=== PATIENT | female | born 1970 | race African-American/Black ===

== ENCOUNTER → 2017-01-07 | Emergency (ER) | payer BC ==
[~2017-01-07] MED LIST: KETOROLAC TROMETHAMINE 60 MG/2 ML VIAL IM ONE; KETOROLAC TROMETHAMINE 60 MG/2 ML VIAL ONE; METHOCARBAMOL 500 MG TABLET ONE; METHOCARBAMOL 500 MG TABLET PO ONE
[2017-01-07 23:18] VITALS: TEMP 98.2; BMI 41.1
--- NOTE | 2017-01-07 23:56 | PDOC ---
History of Present Illness - General History Source: Patient Exam Limitations: No Limitations - History of Present Illness Initial Comments: 01/08/17 01:23 The patient is a 46 year old female with a significant past medical history of diabetes, asthma, COPD, herniated disc in her back, herniated disc in her neck, and gallstones who presents to the ED with lower back pain since yesterday. Patient reports bilateral lower back pain worsened on the left side. She states her back pain radiates to her lower quadrant and is worsened in her lower left quadrant. She reports taking ibuprofen with slight relief of present symptoms. Patient states she had similar symptoms in the past and was diagnosed with kidney stones. Denies fevers or chills. Denies dysuria or changes in urinary output. Denies nausea, vomiting, or diarrhea. Denies any other symptoms. Surgical hx: Gallstones removed, tubal ligation Allergies: Penicillin <Jeanne Granado - Last Filed: 01/08/17 01:23> <Karla Stone - Last Filed: 01/08/17 05:10> - General Chief Complaint: Pain Stated Complaint: ABDOMINAL/BACK PAIN Time Seen by Provider: 01/07/17 23:55 Past History <Jeanne Granado - Last Filed: 01/08/17 01:23> - Past Medical History Anemia: Yes (IRON SUPP SOMETIMES) Asthma: Yes (NO MEDS CHILDHOOD) Cancer: No Cardiac Disorders: No CVA: No COPD: No CHF: No Dementia: No Diabetes: Yes (NIDDM) GI Disorders: No Disorders: No HTN: No Hypercholesterolemia: No Liver Disease: No Seizures: No Thyroid Disease: No - Surgical History Abdominal Surgery: No Appendectomy: Yes Cardiac Surgery: No Cholecystectomy: Yes (1999) Lung Surgery: No Neurologic Surgery: No Orthopedic Surgery: No - Immunization History Immunization Up to Date: Yes - Psycho/Social/Smoking Cessation Hx Suicidal Ideation: No Smoking History: Never smoked Have you smoked in the past 12 months: No If you are a former smoker, when did you quit?: 1996 Information on smoking cessation initiated: No Hx Alcohol Use: No Drug/Substance Use Hx: No Substance Use Type: None Hx Substance Use Treatment: No <Karla Stone - Last Filed: 01/08/17 05:10> - Past Medical History Allergies/Adverse Reactions: Allergies Allergy/AdvReac Type Severity Reaction Status Date / Time Penicillins AdvReac Severe Itching Verified 01/07/17 23:13 Home Medications: Ambulatory Orders Metformin HCl 500 mg PO DAILY 12/21/15 Ibuprofen [Motrin -] 600 mg PO Q8H PRN #0 tablet 12/22/15 Review of Systems - Review of Systems Able to Perform ROS?: Yes Comments:: 01/08/17 01:24 CONSTITUTIONAL: Absent: fever, chills, diaphoresis, generalized weakness, malaise, loss of appetite HEENT: Absent: rhinorrhea, nasal congestion, throat pain, throat swelling, difficulty swallowing, mouth swelling, ear pain, eye pain, visual Changes CARDIOVASCULAR: Absent: chest pain, syncope, palpitations, irregular heart rate, lightheadedness , peripheral edema RESPIRATORY: Absent: cough, shortness of breath, dyspnea with exertion, orthopnea, wheezing, stridor, hemoptysis GASTROINTESTINAL: + abdominal pain Absent: abdominal distension, nausea, vomiting, diarrhea, constipation, melena, hematochezia GENITOURINARY: Absent: dysuria, frequency, urgency, hesitancy, hematuria, flank pain, genital pain MUSCULOSKELETAL: + back pain Absent:joint swelling SKIN: Absent: rash, itching, pallor HEMATOLOGIC/IMMUNOLOGIC: Absent: easy bleeding, easy bruising, lymphadenopathy, frequent infections ENDOCRINE: Absent: unexplained weight gain, unexplained weight loss, heat intolerance, cold intolerance NEUROLOGIC: Absent: headache, focal weakness or paresthesias, dizziness, unsteady gait, seizure, mental status changes, bladder or bowel incontinence PSYCHIATRIC: Absent: anxiety, depression, suicidal or homicidal ideation, hallucinations. All Other Systems: Reviewed and Negative <Jeanne Granado - Last Filed: 01/08/17 01:23> *Physical Exam - Vital Signs Last Vital Signs Temp Pulse Resp BP Pulse Ox 98.2 F 65 20 101/66 98 01/07/17 23:13 01/07/17 23:13 01/07/17 23:13 01/07/17 23:13 01/07/17 23:13 - Physical Exam Comments: 01/08/17 01:24 GENERAL: Well developed, well nourished. Awake and alert. No acute distress. HEENT: Normocephalic, atraumatic. PERRLA, EOMI. No conjunctival pallor. Sclera are non- icteric. Moist mucous membranes. Oropharynx is clear. NECK: Supple. Full ROM. No JVD. Carotid pulses 2+ and symmetric, without bruits. No thyromegaly. NCo lymphadenopathy. CARDIOVASCULAR: Regular rate and rhythm. No murmurs, rubs, or gallops. Distal pulses are 2+ and symmetric. PULMONARY: No evidence of respiratory distress. Lungs clear to auscultation bilaterally. No wheezing, rales or rhonchi. ABDOMINAL: Soft. Non-tender. Non-distended. No rebound or guarding. No organomegaly. Normoactive bowel sounds. MUSCULOSKELETAL: + Left sided straight leg test, pain only to the back , no radiation to the legs. No flank pain with percussion Normal range of motion at all joints. No bony deformities. No CVA tenderness. EXTREMITIES: No cyanosis. No clubbing. No edema. No calf tenderness. SKIN: Warm and dry. Normal capillary refill. No rashes. No jaundice. NEUROLOGICAL: Alert, awake, appropriate. Cranial nerves 2-12 intact. No deficits to light touch and temperature in face, upper extremities and lower extremities. No motor deficits in the in face, upper extremities and lower extremities. Normoreflexic in the upper and lower extremities. Normal speech. Toes are down- going bilaterally. Gait is normal without ataxia. PSYCHIATRIC: Cooperative. Good eye contact. Appropriate mood and affect. <Jeanne Granado - Last Filed: 01/08/17 01:23> - Vital Signs Last Vital Signs Temp Pulse Resp BP Pulse Ox 98.2 F 65 20 101/66 98 01/07/17 23:13 01/07/17 23:13 01/07/17 23:13 01/07/17 23:13 01/07/17 23:13 <Karla Stone - Last Filed: 01/08/17 05:10> ED Treatment Course - ADDITIONAL ORDERS Additional order review: Laboratory Results 01/08/17 00:00 Urine Color Ltyellow Urine Appearance Clear Urine pH 6.0 Urine Protein Negative Urine Glucose (UA) Negative Urine Ketones Negative Urine Blood 1+ H Urine Nitrite Negative Urine Bilirubin Negative Urine Urobilinogen Negative Ur Leukocyte Esterase Trace Urine RBC 3 Urine WBC 6 Ur Epithelial Cells Rare Hyaline Casts 1 Urine Mucus Few Urine HCG, Qual Negative <Jeanne Granado - Last Filed: 01/08/17 01:23> - LABORATORY CBC & Chemistry Diagram: 01/08/17 01:33 01/08/17 01:33 <Karla Stone - Last Filed: 01/08/17 05:10> Medical Decision Making - Medical Decision Making 01/08/17 04:15 Pt comes with low back pain radiating to the left flank. She states that she has a hx of CT scan of the abd pelvis and that she had kidney stones in the past. Pt states that this is the same pain. She has no straight leg pain radiating down the buttock or to the back of her legs. Pt will be treated with analgesia and muscle relaxants for the low back pain, but I will scan her abd pelvis for stones. 01/08/17 05:10 Patient Name: Monique Sullivan THIS IS A PRELIMINARY REPORT FROM [facility] DATE OF SERVICE: 2017-01-08 03:37:37.0 IMAGES: 492 EXAM: CT abdomen and pelvis without contrast HISTORY:Left flank pain COMPARISON: None. FINDINGS: Serial axial sections through the abdomen and pelvis were obtained. No intravenous contrast was given. Coronal and sagittal reconstructions were formatted. Sections through the lung bases are unremarkable. The liver and spleen have a normal size and configuration. The gallbladder has been previously removed. The bile ducts are not dilated. The pancreas is unremarkable. The kidneys are without stone or hydronephrosis. No solid renal mass is identified. The bowel gas pattern is unremarkable. There is no abnormal bowel wall thickening or evidence of diverticulitis. The appendix is normal. The pelvic structures are unremarkable. The uterus and ovaries are not enlarged. A uterine calcification suggests a small fibroid. There is no pathologic adenopathy. The aorta has normal caliber. IMPRESSION: Fibroid uterus. No bowel obstruction or focal inflammation. No ureteric stone or hydronephrosis. The appendix is normal. No acute findings are seen. THIS DOCUMENT HAS BEEN ELECTRONICALLY SIGNED <Karla Stone - Last Filed: 01/08/17 05:10> *DC/Admit/Observation/Transfer - Attestations Scribe Attestion: 01/08/17 01:24 Documentation prepared by Jeanne Granado, acting as medical director occupational health for Karla Stone MD <Jeanne Granado - Last Filed: 01/08/17 01:23> - Discharge Dispostion Admit: No <Karla Stone - Last Filed: 01/08/17 05:10> Diagnosis at time of Disposition: Renal colic - Discharge Dispostion Disposition: HOME Condition at time of disposition: Stable - Referrals Referrals: Alisha James [Primary Care Provider] - - Patient Instructions Printed Discharge Instructions: Kidney Stones -- Adult - Post Discharge Activity Work/School Note: Back to Work
[2017-01-08 00:27] LABS: URINE APPEARANCE CLEAR; URINE BILIRUBIN NEGATIVE (NEGATIVE); URINE BLOOD 1+ (NEGATIVE); URINE COLOR LTYELLOW; URINE GLUCOSE (UA) NEGATIVE (NEGATIVE); URINE KETONE NEGATIVE (NEGATIVE); URINE LEUK ESTERASE TRACE (NEGATIVE); URINE NITRITE NEGATIVE (NEGATIVE); URINE PROTEIN NEGATIVE (NEGATIVE); URINE UROBILINOGEN NEGATIVE mg/dL (0.2-1.0)
[2017-01-08 00:44] LABS: URINE HYALINE CAST 1 /lpf; URINE MUCUS FEW; URINE RBC 3 /hpf (0-3); URINE WBC 6 /hpf (3-5)
[2017-01-08 01:40] LABS: BASOPHIL 0.2 % (0-2.0); EOSINOPHIL 3.5 % (0-4.5); MCH 27.1 pg (25.7-33.7); MCHC 32.1 g/dl (32.0-36.0); MEAN CELL VOLUME 84.2 fl (80-96); MEAN PLT VOLUME 7.6 fl (7.5-11.1); NEUTROPHILS 50.1 % (42.8-82.8); PLATELET COUNT 338 K/MM3 (134-434); WHITE BLOOD COUNT 9.1 K/mm3 (4.0-10.0)
[2017-01-08 02:16] LABS: ALBUMIN 3.3 g/dl (3.4-5.0); ANION GAP 8 (8-16); BILIRUBIN,TOTAL 0.6 mg/dL (0.2-1.0); CALCIUM 8.6 mg/dL (8.5-10.1); CO2 30 mmol/L (21-32); CREATININE 0.7 mg/dL (0.55-1.02); GLUCOSE,RANDOM 103 mg/dL (74-106); SGOT/AST 15 U/L (15-37); SGPT/ALT 19 U/L (12-78); TOT PROT 6.6 g/dl (6.4-8.2)
[2017-01-08 02:17] LABS: ALK PHOS 100 U/L (45-117)
[2017-01-08 04:20] VITALS: BP 124/73; PULSE 59
== END | disposition home or self-care (01) ==
LOC: JER 22:59
PROC: 3E0233Z Introduction of Anti-inflammatory into Muscle, Percutaneous Approach (ICD-10-PCS; principal; 2017-01-07)
DX: N23 Unspecified renal colic (principal); Z87.442 Personal history of urinary calculi
CPT/HCPCS: 36415; 74176; 80053; 81003; 81015; 84703; 85025; 99282-25

== ENCOUNTER 2017-01-15 10:05 | Emergency (ER) | payer SELFPAY ==
[2017-01-15 10:16] VITALS: BP 139/84; PULSE 61; TEMP 98.4; BMI 41.1
[2017-01-15] MEDS ORDERED: ALBUTEROL SO4 2.5/IPRATROPIUM 0.5 INH SOL 3 ML VIAL.NEB. NEB ONE ×2 (10:27→10:29)
--- NOTE | 2017-01-15 10:30 | PDOC ---
History of Present Illness - General Chief Complaint: Asthma Stated Complaint: ASTHMA Time Seen by Provider: 01/15/17 10:27 History Source: Patient, Parent(s) Exam Limitations: No Limitations - History of Present Illness Initial Comments: 01/15/17 10:29 Patient is a 46-year-old female, history of anemia, asthma, non-insulin- dependent diabetes. Patient states the last 24 hours has been having intermittent coughing, spasm, asthma exacerbation. Reports she had similar episode one year ago and has not had one since so she did not have her rescue inhaler today and did not have any new prescription for it. She denies any fever, no sore throat. Denies any other complaint. Past Medical History: Denies. Allergies: No known allergies Medications: Metformin, not taken Pulmicort for one year Family History: Non-contributory Social History: Denies smoking, alcohol use, or IVDU Review of Systems GENERAL/CONSTITUTIONAL: No fever or chills. No weakness. No weight change. HEAD, EYES, EARS, NOSE AND THROAT: No change in vision. No ear pain or discharge. No sore throat. CARDIOVASCULAR: No chest pain or shortness of breath. RESPIRATORY: Cough and wheeze, no hemoptysis. GASTROINTESTINAL: No nausea, vomiting, diarrhea or constipation. No rectal bleeding. GENITOURINARY: No dysuria, frequency, or change in urination. MUSCULOSKELETAL: No joint or muscle swelling or pain. No neck or back pain. SKIN : No rash or easy bruising. NEUROLOGIC: No headache, vertigo, loss of consciousness, or loss of sensation. Physical Exam: GENERAL: The patient is awake, alert, and fully oriented, in no acute distress.] HEAD: [Normal with no signs of trauma.] EYES: [Pupils equal, round and reactive to light, extraocular movements intact, sclera anicteric, conjunctiva clear.] ENT: [Ears normal, nares patent, oropharynx clear without exudates. Moist mucous membranes. No uvula deviation] NECK: [Normal range of motion, supple without lymphadenopathy, JVD, or masses.] LUNGS: [Expiratory wheezes, no crackles, bronchospasm] HEART: [Regular rate and rhythm, normal S1 and S2 without murmur, rub or gallop. ] ABDOMEN: [Soft, nontender, normoactive bowel sounds. No guarding, no rebound. No masses. No bruising or abrasions] MUSCULOSKELETAL: [Normal range of motion, no edema. No clubbing or cyanosis. No cords, erythema, or tenderness. No CVA Tenderness with fist.] NEUROLOGICAL: [Cranial nerves II through XII grossly intact. Normal speech, normal gait.] SKIN: [Warm, Dry, normal turgor, no rashes or lesions noted.] Past History - Past Medical History Allergies/Adverse Reactions: Allergies Allergy/AdvReac Type Severity Reaction Status Date / Time Penicillins AdvReac Severe Itching Verified 01/15/17 10:14 Home Medications: Ambulatory Orders Metformin HCl 500 mg PO DAILY 12/21/15 Albuterol Sulfate Inhaler - [Ventolin HFA Inhaler -] 1 puff IH Q4H #1 inhaler Budesonide [Pulmicort Flexhaler] 90 mcg IH DAILY #1 aer.pow.ba 01/15/17 Prednisone [Deltasone -] 20 mg PO DAILY #5 tablet 01/15/17 Anemia: Yes (IRON SUPP SOMETIMES) Asthma: Yes Cancer: No Cardiac Disorders: No CVA: No COPD: No CHF: No Dementia: No Diabetes: Yes (NIDDM) GI Disorders: No Disorders: No HTN: No Hypercholesterolemia: No Liver Disease: No Seizures: No Thyroid Disease: No - Surgical History Abdominal Surgery: No Appendectomy: Yes Cardiac Surgery: No Cholecystectomy: Yes (1999) Lung Surgery: No Neurologic Surgery: No Orthopedic Surgery: No - Immunization History Immunization Up to Date: Yes - Psycho/Social/Smoking Cessation Hx Suicidal Ideation: No Smoking History: Former smoker Have you smoked in the past 12 months: No If you are a former smoker, when did you quit?: 1996 Information on smoking cessation initiated: No Hx Alcohol Use: No Drug/Substance Use Hx: No Substance Use Type: None Hx Substance Use Treatment: No *Physical Exam - Vital Signs Last Vital Signs Temp Pulse Resp BP Pulse Ox 98.4 F 61 19 139/84 97 01/15/17 10:14 01/15/17 10:14 01/15/17 10:14 01/15/17 10:14 01/15/17 10:14 Medical Decision Making - Medical Decision Making 01/15/17 10:30 A/P: Received patient with moist cough, spasm bronchospasm, Combivent treatment given. 01/15/17 10:49 Albuterol given. 01/15/17 11:45 Albuterol given, lungs are clear patient states she feels better. No bronchospasm is noted. Prednisone 60 mg by mouth times one given. O2 sats are 100% on room air, clear, will DC patient home on prednisone, albuterol. I discussed the physical exam findings, ancillary test results and final diagnoses with the patient. I answered all of the patient's questions. The patient was satisfied with the care received and felt comfortable with the discharge plan and treatment plan. The patient will call to arrange follow-up and will return to the Emergency Department with any new, persistent or worsening symptoms. *DC/Admit/Observation/Transfer Diagnosis at time of Disposition: Asthma Qualifiers: Asthma severity: mild intermittent Asthma complication type: with acute exacerbation Qualified Code(s): J45.21 - Mild intermittent asthma with (acute) exacerbation - Discharge Dispostion Disposition: HOME Condition at time of disposition: Good Admit: No - Referrals Referrals: Alisha James [Primary Care Provider] - - Patient Instructions Printed Discharge Instructions: Asthma -- Adult Additional Instructions: Recommend follow-up with your primary care doctor. Any increased shortness of breath, coughing, fever, or any other concerns return to the ER.
[2017-01-15] MEDS ORDERED: ALBUTEROL SO4 0.083% IH SOL 2.5 MG/3 ML VIAL.NEB. NEB ONE ×4 (10:50→11:17)
[2017-01-15] MEDS ORDERED: predniSONE 20 MG TABLET (UD) PO ONE (11:12)
[2017-01-15] MEDS ORDERED: predniSONE 20 MG TABLET (UD) ONE (11:17)
== END 2017-01-15 11:57 | disposition home or self-care (01) ==
LOC: JERFT 10:05
PROC: 3E0F7GC Introduction of Other Therapeutic Substance into Respiratory Tract, Via Natural or Artificial Opening (ICD-10-PCS; principal; 2017-01-15)
DX: J45.21 Mild intermittent asthma with (acute) exacerbation (principal); D64.9 Anemia, unspecified; E11.9 Type 2 diabetes mellitus without complications; Z79.84 Long term (current) use of oral hypoglycemic drugs
CPT/HCPCS: 99281-25

== ENCOUNTER 2017-08-29 19:42 | Emergency (ER) | payer SELFPAY ==
--- NOTE | 2017-08-29 20:02 | PDOC ---
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 nO labs sent- waits FT eval. 08/29/17 20:02 08/29/17 20:04
[2017-08-29 20:04] VITALS: BP 137/87; PULSE 82; TEMP 97.9; BMI 41.8
--- NOTE | 2017-08-29 22:21 | PDOC ---
History of Present Illness - General Chief Complaint: Head/Neck problem Stated Complaint: LEFT SIDE NUMBNESS Time Seen by Provider: 08/29/17 19:56 Past History - Past Medical History Allergies/Adverse Reactions: Allergies Allergy/AdvReac Type Severity Reaction Status Date / Time Penicillins AdvReac Severe Itching Verified 08/29/17 20:04 Home Medications: Ambulatory Orders Metformin HCl 500 mg PO DAILY 12/21/15 Albuterol Sulfate Inhaler - [Ventolin HFA Inhaler -] 1 puff IH Q4H #1 inhaler Budesonide [Pulmicort Flexhaler] 90 mcg IH DAILY #1 aer.pow.ba 01/15/17 predniSONE [Deltasone -] 20 mg PO DAILY #5 tablet 01/15/17 Anemia: Yes (IRON SUPP SOMETIMES) Asthma: Yes Cancer: No Cardiac Disorders: No CVA: No COPD: No CHF: No Dementia: No Diabetes: Yes (NIDDM) GI Disorders: No Disorders: No HTN: No Hypercholesterolemia: No Liver Disease: No Seizures: No Thyroid Disease: No - Surgical History Abdominal Surgery: No Appendectomy: Yes Cardiac Surgery: No Cholecystectomy: Yes (1999) Lung Surgery: No Neurologic Surgery: No Orthopedic Surgery: No - Immunization History Immunization Up to Date: Yes - Suicide/Smoking/Psychosocial Hx Smoking History: Never smoked Have you smoked in the past 12 months: No If you are a former smoker, when did you quit?: 1996 Information on smoking cessation initiated: No Hx Alcohol Use: No Drug/Substance Use Hx: No Substance Use Type: None Hx Substance Use Treatment: No *Physical Exam - Vital Signs Last Vital Signs Temp Pulse Resp BP Pulse Ox 97.9 F 82 18 137/87 99 08/29/17 19:58 08/29/17 19:58 08/29/17 19:58 08/29/17 19:58 08/29/17 19:58 *DC/Admit/Observation/Transfer - Referrals Referrals: Alisha James [Primary Care Provider] - - Patient Instructions - Post Discharge Activity
== END 2017-08-29 22:52 | disposition left against medical advice (07) ==
LOC: JERFT 19:42
DX: M54.2 Cervicalgia (principal)
CPT/HCPCS: 99281-25

== ENCOUNTER 2017-08-30 17:20 | Emergency (ER) | payer BC ==
--- NOTE | 2017-08-30 17:32 | PDOC ---
History of Present Illness - History of Present Illness Initial Comments: 08/30/17 18:32 The patient is a 46 year old female with a history of DM, Asthma, Anemia who presents for evaluation of facial numbness. The patient reports left lower facial numbness beginning 4 days ago prompting her presentation to the ED for evaluation. She also notes some left lower facial weakness and some tingling in her hands bilaterally. She otherwise denies weakness in the extremities, fevers, chills, headache, vision changes, SOB, chest pain, abdominal pain, nausea, vomiting, or changes with urination or bowel movements. <Spike Chavez - Last Filed: 08/30/17 20:12> <Candice Leslie - Last Filed: 08/30/17 20:38> - General Stated Complaint: POSSIBLE STROKE Time Seen by Provider: 08/30/17 17:30 Past History - Past Medical History Anemia: Yes (IRON SUPP SOMETIMES) Asthma: Yes Cancer: No Cardiac Disorders: No CVA: No COPD: No CHF: No Dementia: No Diabetes: Yes (NIDDM) GI Disorders: No Disorders: No HTN: No Hypercholesterolemia: No Liver Disease: No Seizures: No Thyroid Disease: No - Surgical History Abdominal Surgery: No Appendectomy: Yes Cardiac Surgery: No Cholecystectomy: Yes (1999) Lung Surgery: No Neurologic Surgery: No Orthopedic Surgery: No - Immunization History Immunization Up to Date: Yes - Suicide/Smoking/Psychosocial Hx Smoking History: Never smoked Have you smoked in the past 12 months: No If you are a former smoker, when did you quit?: 1996 Hx Alcohol Use: No Drug/Substance Use Hx: No Substance Use Type: None Hx Substance Use Treatment: No <Spike Chavez - Last Filed: 08/30/17 20:12> <Candice Leslie - Last Filed: 08/30/17 20:38> - Past Medical History Allergies/Adverse Reactions: Allergies Allergy/AdvReac Type Severity Reaction Status Date / Time Penicillins AdvReac Severe Itching Verified 08/30/17 17:43 Home Medications: Ambulatory Orders Metformin HCl 500 mg PO DAILY 12/21/15 Albuterol Sulfate [Proair Hfa] 8.5 gm IH QID 08/30/17 Cholecalciferol (Vitamin D3) [Vitamin D] 2,000 unit PO DAILY 08/30/17 Naproxen [Naprosyn] 500 mg PO BID 08/30/17 Review of Systems - Review of Systems Comments:: 08/30/17 18:35 Constitutional: No fevers, chills, fatigue, malaise HEENT: No Rhinorrhea, nasal congestion, visual changes Cardiovascular: No chest pain, syncope, palpitations, lightheadedness Respiratory: No Cough, SOB, Hemoptysis, Gastrointestinal: No Abdominal pain, Nausea, Vomiting, Constipation, Diarrhea, Melena Genitourinary: No Dysuria, Frequency, Urgency, Hesitancy, Hematuria, Flank pain Musculoskeletal: No Myalgia, arthralgia Skin: No rashes, itching, bruising, pallor Neurologic: Facial numbness, weakness. No Headache, Dizziness Psychiatric: No Hallucinations. No SI or HI <Spike Chavez - Last Filed: 08/30/17 20:12> *Physical Exam - Physical Exam Comments: 08/30/17 18:40 General Appearance: Nourished. No Apparent Distress HEENT: EOMI, QUIRINO. No Pharyngeal Erythema, Tonsillar Exudate, Tonsillar Erythema Neck: No Cervical Lymphadenopathy Respiratory/Chest: Lungs Clear, Normal Breath Sounds. No Crackles, Rales, Rhonchi, Wheezing Cardiovascular: Regular Rhythm, Regular Rate. No Murmur, Gallops, Rubs Gastrointestinal/Abdominal: Normal Bowel Sounds, Soft. No Guarding, Rebound, Tenderness Musculoskeletal: No CVA Tenderness Extremity: Normal Capillary Refill Integumentary: Normal Color, Dry, Warm Neurologic: sales support coordinator II-XII NML intact, Fully Oriented, Alert, Normal Mood/Affect, Normal Response, Motor Strength 5/5. Normal Finger to Nose and Heel to Jones, No Facial Droop noted on exam. <Spike Chavez - Last Filed: 08/30/17 20:12> - Vital Signs Last Vital Signs Temp Pulse Resp BP Pulse Ox 98.9 F 62 14 135/65 98 08/30/17 17:43 08/30/17 20:29 08/30/17 20:29 08/30/17 20:29 08/30/17 20:29 <Candice Leslie - Last Filed: 08/30/17 20:38> Heart Score/ECG Review #1 ECG reviewed & interpreted by me at: 18:20 General ECG Interpretation: Sinus Rhythm, Normal Rate, Normal Intervals, No acute ischemic changes <Spike Chavez - Last Filed: 08/30/17 20:12> ED Treatment Course - LABORATORY CBC & Chemistry Diagram: 08/30/17 18:05 08/30/17 18:05 <Andres Chavezel - Last Filed: 08/30/17 20:12> - LABORATORY CBC & Chemistry Diagram: 08/30/17 18:05 08/30/17 18:05 - ADDITIONAL ORDERS Additional order review: Laboratory Results 08/30/17 03 18:05 18:05 PT with INR 13.00 H INR 1.15 H PTT (Actin FS) 30.8 Sodium 145 Potassium 3.9 Chloride 107 Carbon Dioxide 29 Anion Gap 9 BUN 12 Creatinine 0.6 Creat Clearance w eGFR > 60 Random Glucose 90 Calcium 8.8 Total Bilirubin 0.5 AST 13 L ALT 18 Alkaline Phosphatase 106 Total Protein 6.7 Albumin 3.4 08/30/17 18:05 RBC 4.39 MCV 84.7 MCHC 33.0 RDW 14.7 MPV 7.6 Neutrophils % 53.5 Lymphocytes % 34.7 Monocytes % 8.2 Eosinophils % 3.1 Basophils % 0.5 <Candice Leslie - Last Filed: 08/30/17 20:38> Medical Decision Making - Medical Decision Making 08/30/17 18:42 The patient is a 46 year old female with a history of DM, Asthma, Anemia who presents for evaluation of facial numbness. Differential includes but is not limited to: Intracranial process, Stephen's Palsy, Lyme's disease, infectious, metabolic derangement. Given the patient's history, we will obtain a cbc, cmp, coags, lyme's titer, and head ct to evaluate further for possible etiologies. The patient has no focal neurological deficits on exam and symptoms that have been occurring over 4 days outside the window for TPA. We will continue to monitor and reassess in the meantime. 08/30/17 20:[address] is unremarkable as read by our radiologist. CBC, cmp, are unremarkable. We are comfortable discharging the patient home at this time with neurology follow up. We discussed the results, plan, and return precautions with the patient who voiced understanding and is agreeable with the plan. <Spike Chavez - Last Filed: 08/30/17 20:12> *DC/Admit/Observation/Transfer - Discharge Dispostion Admit: No <Spike Chavez - Last Filed: 08/30/17 20:12> <Candice Leslie - Last Filed: 08/30/17 20:38> Diagnosis at time of Disposition: Left facial numbness - Discharge Dispostion Disposition: HOME Condition at time of disposition: Good - Referrals Referrals: Alisha James [Primary Care Provider] - Kaleb Peace MD [Staff Physician] - - Patient Instructions Printed Discharge Instructions: DI for Numbness/tingling Additional Instructions: Please return to the ER if you experience concerning or worsening symptoms including worsening headache, weakness in your extremities, or difficulty speaking or breathing. Your lab results were normal here in the ER. Your Head CT was also normal. It is very important that you call to schedule a follow up appointment with our neurologist Dr. Peace within 2-3 days to discuss your ER visit and further management of your symptoms. - Post Discharge Activity Forms/Work/School Notes: Back to Work
[2017-08-30 17:47] VITALS: PULSE 62; TEMP 98.9; BMI 43.5
[2017-08-30 18:15] LABS: BASO % 0.5 % (0-2.0); EOS % 3.1 % (0-4.5); HEMATOCRIT 37.2 % (32.4-45.2); HEMOGLOBIN 12.3 GM/dL (10.7-15.3); LYMPH % 34.7 % (8-40); MEAN CELL VOLUME 84.7 fl (80-96); MEAN PLT VOLUME 7.6 fl (7.5-11.1); MONO % 8.2 % (3.8-10.2); NEUT % 53.5 % (42.8-82.8); PLATELET COUNT 342 K/MM3 (134-434); RBC 4.39 M/mm3 (3.60-5.2); RDW 14.7 % (11.6-15.6); WHITE BLOOD COUNT 7.5 K/mm3 (4.0-10.0)
[2017-08-30 18:27] LABS: INR 1.15 (0.82-1.09)
[2017-08-30 18:30] LABS: ACTIVATED PTT 30.8 SECONDS (26.9-34.4)
[2017-08-30 18:40] LABS: ALBUMIN 3.4 g/dl (3.4-5.0); ALK PHOS 106 U/L (45-117); ANION GAP 9 (8-16); BILIRUBIN,TOTAL 0.5 mg/dL (0.2-1.0); BLOOD UREA NITROGEN 12 mg/dL (7-18); CALCIUM 8.8 mg/dL (8.5-10.1); CHLORIDE 107 mmol/L (98-107); CO2 29 mmol/L (21-32); CREATININE 0.6 mg/dL (0.55-1.02); GLUCOSE,RANDOM 90 mg/dL (74-106); POTASSIUM 3.9 mmol/L (3.5-5.1); SGOT/AST 13 U/L (15-37); SGPT/ALT 18 U/L (12-78); SODIUM 145 mmol/L (136-145); TOT PROT 6.7 g/dl (6.4-8.2)
--- NOTE | 2017-08-30 19:39 | PDOC ---
Attending Attestation - Resident Resident Name: KathySpike - ED Attending Attestation I have performed the following: I have examined & evaluated the patient, The case was reviewed & discussed with the resident, I agree w/resident's findings & plan, Exceptions are as noted - HPI HPI: 08/30/17 19:38 46-year-old female brought in by ambulance because she has had left-sided numbness to her lower face since Tuesday. She also has noted some tingling in her left fingertips. Denies any recent trauma. 08/30/17 20:50 SHE DENIES HAVING ANY HEADACHES,VISUAL CHANGES, EXTREMITY WEAKNESS ,FEVER,CHILLS ,VOMITING -her numbness has been confined to her lower left face -and she also has had some tinglking to her bilateral fingertips -ct scan head negative for any acute intra cranial pathology 08/30/17 20:58 lyme titer pending pt referred to neurology - Physicial Exam PE: 08/30/17 20:58 Well-nourished well-developed 46-year-old female in no acute distress. Presents with 4 days of left lower facial numbness and some tingling and numbness to her fingertips bilaterally head ncat eyes diane eomi neck supple,no bruits lungs cta b/l [id number] abd soft,nontender ext no e/c/c skin warm and dry neuro axox3,ambulatory,motor strength 5/5, bilaterally,no ataxia,no clonus, reflexes +2 psych apprpriate - Medical Decision Making 08/30/17 21:01 Neurology referral for further evaluation
[2017-08-30 20:33] VITALS: BP 135/65
--- NOTE | 2017-08-31 09:56 | EKG ---
Test Reason : Blood Pressure : / mmHG Vent. Rate : 060 BPM Atrial Rate : 060 BPM P-R Int : 180 ms QRS Dur : 082 ms QT Int : 410 ms P-R-T Axes : 061 037 026 degrees QTc Int : 410 ms NORMAL SINUS RHYTHM NORMAL ECG WHEN COMPARED WITH ECG OF 21-JUN-2015 01:05, NO SIGNIFICANT CHANGE WAS FOUND Confirmed by BERNICE GRAY MD ([id number]) on 08/31/2017 9:56:28 AM Referred By: Confirmed By:BERNICE GRAY MD
== END 2017-08-30 20:59 | disposition home or self-care (01) ==
LOC: JER 17:20
DX: R20.0 Anesthesia of skin (principal); E11.9 Type 2 diabetes mellitus without complications; Z79.84 Long term (current) use of oral hypoglycemic drugs; J45.909 Unspecified asthma, uncomplicated; D64.9 Anemia, unspecified
CPT/HCPCS: 36415; 70450-TC; 80053; 85025; 85610; 85730; 86618; 93005; 93010; 99285-25

== ENCOUNTER 2018-05-30 09:29 | Emergency (ER) | payer BC, OTHER ==
[2018-05-30 09:51] VITALS: BP 126/74; PULSE 74; TEMP 97.9; BMI 40.4
[2018-05-30] MEDS ORDERED: IBUPROFEN 400 MG TABLET (FP) PO ONE ×2 (11:21→11:23)
--- NOTE | 2018-05-30 11:25 | PDOC ---
History of Present Illness - General Chief Complaint: Injury Stated Complaint: INJURY, LT ANKLE Time Seen by Provider: 05/30/18 10:45 History Source: Patient Exam Limitations: No Limitations Past History - Travel Traveled outside of the country in the last 30 days: No Close contact w/someone who was outside of country & ill: No - Past Medical History Allergies/Adverse Reactions: Allergies Allergy/AdvReac Type Severity Reaction Status Date / Time Penicillins AdvReac Severe Itching Verified 05/30/18 09:47 Home Medications: Ambulatory Orders metFORMIN HCL [Metformin HCl] 500 mg PO DAILY 12/21/15 Albuterol Sulfate [Proair Hfa] 8.5 gm IH QID 08/30/17 Cholecalciferol (Vitamin D3) [Vitamin D] 2,000 unit PO DAILY 08/30/17 Naproxen [Naprosyn] 500 mg PO BID 08/30/17 Ibuprofen 800 mg PO TID #30 tablet 05/30/18 Anemia: Yes (IRON SUPP SOMETIMES) Asthma: Yes Cancer: No Cardiac Disorders: No CVA: No COPD: No CHF: No Dementia: No Diabetes: Yes (NIDDM) GI Disorders: No Disorders: No HTN: No Hypercholesterolemia: No Liver Disease: No Seizures: No Thyroid Disease: No - Surgical History Abdominal Surgery: No Appendectomy: Yes Cardiac Surgery: No Cholecystectomy: Yes (1999) Lung Surgery: No Neurologic Surgery: No Orthopedic Surgery: No - Immunization History Immunization Up to Date: Yes - Suicide/Smoking/Psychosocial Hx Smoking History: Never smoked Have you smoked in the past 12 months: No If you are a former smoker, when did you quit?: 1996 Hx Alcohol Use: No Drug/Substance Use Hx: No Substance Use Type: None Hx Substance Use Treatment: No Review of Systems - Review of Systems Able to Perform ROS?: Yes Comments:: 05/30/18 11:22 CONSTITUTIONAL: Absent: fever, chills, diaphoresis, generalized weakness, malaise, loss of appetite HEENT: Absent: rhinorrhea, nasal congestion, throat pain, throat swelling, difficulty swallowing, mouth swelling, ear pain, eye pain, visual Changes CARDIOVASCULAR: Absent: chest pain, loss of consciousness, palpitations, irregular heart rate, peripheral edema RESPIRATORY: Absent: cough, shortness of breath, dyspnea with exertion, orthopnea, wheezing, stridor, hemoptysis GASTROINTESTINAL: Absent: abdominal pain, abdominal distension, nausea, vomiting, diarrhea, constipation, melena, hematochezia GENITOURINARY: Absent: dysuria, frequency, urgency, hesitancy, hematuria, flank pain, genital pain MUSCULOSKELETAL: Absent: myalgia, arthralgia, joint swelling SKIN: Absent: rash, itching, pallor HEMATOLOGIC/IMMUNOLOGIC: Absent: easy bleeding, easy bruising, lymphadenopathy, frequent infections ENDOCRINE: Absent: unexplained weight gain, unexplained weight loss, heat intolerance, cold intolerance NEUROLOGIC: Absent: headache, focal weakness or paresthesias, dizziness, unsteady gait, seizure, mental status changes, bladder or bowel incontinence PSYCHIATRIC: Absent: anxiety, depression, suicidal or homicidal ideation, hallucinations. Is the patient limited Kyrgyz proficient: No *Physical Exam - Vital Signs Last Vital Signs Temp Pulse Resp BP Pulse Ox 97.9 F 74 18 126/74 97 05/30/18 09:47 05/30/18 09:47 05/30/18 09:47 05/30/18 09:47 05/30/18 09:47 - Physical Exam Comments: 05/30/18 11:22 GENERAL: [The patient is awake, alert, and fully oriented, in no acute distress. ] HEAD: [Normal with no signs of trauma.] EYES: [Pupils equal, round and reactive to light, extraocular movements intact, sclera anicteric, conjunctiva clear.] EXTREMITIES: [Normal range of motion, no edema.] NEUROLOGICAL: [Normal speech, normal gait.] PSYCH: [Normal mood, normal affect.] SKIN: [Warm, Dry, normal turgor, no rashes or lesions noted.] Moderate Sedation - Procedure Monitoring Vital Signs: Procedure Monitoring Vital Signs Temperature 97.9 F 05/30/18 09:47 Pulse Rate 74 05/30/18 09:47 Respiratory Rate 18 05/30/18 09:47 Blood Pressure 126/74 05/30/18 09:47 O2 Sat by Pulse Oximetry (%) 97 05/30/18 09:47 *DC/Admit/Observation/Transfer Diagnosis at time of Disposition: Ankle sprain Qualifiers: Encounter type: initial encounter Involved ligament of ankle: unspecified ligament Laterality: right Qualified Code(s): S93.401A - Sprain of unspecified ligament of right ankle, initial encounter - Discharge Dispostion Disposition: HOME Condition at time of disposition: Stable Decision to Admit order: No - Prescriptions Prescriptions: Ibuprofen 800 mg PO TID #30 tablet - Referrals Referrals: Alisha James MD [Primary Care Provider] - Earnest Garnica MD [Staff Physician] - - Patient Instructions Printed Discharge Instructions: DI for Ankle Sprain Additional Instructions: You sprained your ankle. Your x-ray was negative for broken bones. Please keep your ankle elevated while at rest above the level of your heart to reduce swelling. You may take Motrin 800 mg every 8 hours to help reduce pain and swelling. Please ice the area for 20 minute intervals at least 5 times a day to help reduce swelling. Please wear the Kole wrap. Please follow-up with orthopedics in 1 week if your symptoms are not improving. Return to the emergency department if you have worsening pain, or unable to walk , numbness and tingling of the foot, or had any changes in her symptoms. - Post Discharge Activity Forms/Work/School Notes: Back to Work
== END 2018-05-30 12:38 | disposition home or self-care (01) ==
LOC: JERFT 09:29
DX: S93.401A Sprain of unspecified ligament of right ankle, initial encounter (principal); X58.XXXA Exposure to other specified factors, initial encounter; Y93.89 Activity, other specified; Y92.89 Other specified places as the place of occurrence of the external cause; Z87.891 Personal history of nicotine dependence; E11.9 Type 2 diabetes mellitus without complications
CPT/HCPCS: 73590-TC-RT-FY; 73610-TC-RT-FY; 73630-TC-RT-FY; 99281-25

== ENCOUNTER 2018-06-02 05:03 | Day surgery (SDC) | payer OTHER ==
[2018-06-02 06:59] VITALS: BMI 42.3
--- NOTE | 2018-06-02 08:17 | HP ---
Satellite [facility] - Chief Complaint Chief Complaint: right achilles tear - Past Medical History Allergies/Adverse Reactions: Allergies Allergy/AdvReac Type Severity Reaction Status Date / Time Penicillins AdvReac Severe Itching Verified 06/02/18 06:49 Pulmonary: Yes: COPD ...LMP: 10/18/17 - Current Medications Current Medications: Home Medications Medication Instructions Recorded Albuterol Sulfate [Proair Hfa] 8.5 gm IH QID PRN 08/30/17 Oxycodone HCl/Acetaminophen 1 - 2 tab PO Q6H #30 tab MDD 6 06/02/18 [Percocet 5-325 mg Tablet] Sertraline HCl [Zoloft] 100 mg PO HS 06/02/18 Satellite Physical Exam - Physical Examination General Appearance: Well Nourished, Well Developed, Alert & Oriented x3 ENT: Clear Lung: Normal air movement Heart: Regular rate & rhythm Extremities: Other (right ankle- + swelling, + ttp, + palpable defect, + valero, nvi) Neurological: Intact, Alert, Oriented Satellite Impression/Plan - Impression/Plan Impression: right achilles tendon rupture Operative Procedure: right achilles tendon repair Date to be Performed: 06/02/18
[2018-06-02] MEDS ORDERED: ROPIVACAINE HCL 0.5% 30ML VIAL ONE (09:55)
[2018-06-02] MEDS ORDERED: MIDAZOLAM HCL 2 MG/2 ML SINGLE DOSE VIAL ONE ×2 (09:58)
[2018-06-02] MEDS ORDERED: DEXMEDETOMIDINE HCL 200 MCG/2 ML ML IVPB ONE (10:34)
[2018-06-02] MEDS ORDERED: ceFAZolin SODIUM 1 GM VIAL IVPB ONE (11:11)
[2018-06-02] MEDS ORDERED: LIDOCAINE HCL 1%, 10 MG/ML (20ML VIAL) ONE (11:19)
[2018-06-02] MEDS ORDERED: LIDOCAINE HCL 1%, 10 MG/ML (20ML VIAL) NR ONE (11:22)
[2018-06-02] MEDS ORDERED: KETOROLAC TROMETHAMINE 30 MG/1 ML VIAL ONE (11:24)
[2018-06-02] MEDS ORDERED: KETAMINE HCL 200 MG/20 ML VIAL ONE (11:24)
[2018-06-02] MEDS ORDERED: PROPOFOL 20 ML ONE ×3 (11:27→11:36)
[2018-06-02] MEDS ORDERED: ceFAZolin SODIUM 1 GM VIAL ONE ×2 (11:29→11:39)
[2018-06-02] MEDS ORDERED: DEXAMETHASONE SOD PHOSPHATE 4 MG/1 ML VIAL ONE (11:39)
[2018-06-02] MEDS ORDERED: SODIUM CHLORIDE 0.9% P/F 10 ML VIAL IJ ONE (11:39)
[2018-06-02] MEDS ORDERED: ONDANSETRON 4 MG/2 ML VIAL ONE (11:39)
--- NOTE | 2018-06-02 11:56 | OP ---
Operative Note - Note: Operative Date: 06/02/18 ([facility]) Pre-Operative Diagnosis: right achilles tendon rupture Operation: right achilles tendon repair Post-Operative Diagnosis: Same as Pre-op Surgeon: Earnest Garnica Small Order Cutter: Tino Jacinto Anesthesiologist/COMMISSIONS SPECIALIST: Curtis Daniel Anesthesia: Local, MAC Estimated Blood Loss (mls): 25 Operative Report Dictated: Yes
[2018-06-02] MEDS ORDERED: LACTATED RINGERS SOLUTION 1,000 ML IV SCH (12:45)
[2018-06-02] MEDS ORDERED: oxyCODONE HCL 5 MG TABLET PO PRN ×2 (12:51)
[2018-06-02] MEDS ORDERED: ONDANSETRON 4 MG/2 ML VIAL IVPUSH PRN (12:51)
--- NOTE | 2018-06-02 13:28 | OP ---
DATE OF OPERATION: 06/02/2018 PREOPERATIVE DIAGNOSIS: Right Achilles tendon rupture. POSTOPERATIVE DIAGNOSIS: Right Achilles tendon rupture. PROCEDURE: Right Achilles tendon repair. SURGICAL ATTENDING: Earnest Garnica MD LANG INTERPRETER: ANISHA Persaud ANESTHESIA: Regional and general. CLOSURE: Number 2 FiberWire suture for tendon, 2-0 Vicryl for subcutaneous and latricia for skin. ESTIMATED BLOOD LOSS: Less than 50 mL COMPLICATIONS: None. CONDITION: Recovery room in stable condition. DESCRIPTION OF PROCEDURE: Patient was taken to the operating room on June 02, 2018. Regional and general anesthesia was administered by the anesthesiologist. Patient was placed in the prone position with all prominences well-padded. IV Kefzol was administered prophylactic prior to the case. The right lower extremity was prepped and draped in the usual sterile fashion. A curvilinear incision over the distal leg was incised centered over the gap in the Achilles tendon. Full-thickness dissection was carried down to the tendon. The edges of the tendon were mobilized both proximally and distally. No. 2 FiberWire suture was weaved up and down the sides of the tendon both proximally and distally. Two sutures proximally and 2 distally. A fasciotomy was performed at the anterior aspect of the region in order to facilitate ingrowth of healing tissue. With the leg in an equinus position, the 2 ends were sutured end-to-end achieving good end-to-end coverage. The wound was irrigated out with copious amounts of irrigation. The subcutaneous was closed with 2-0 Vicryl and latricia for the skin. A sterile pressure dressing, followed by an equinus splint was applied. Patient was awakened from anesthesia and transferred to the recovery room in stable condition. No complications. Estimated blood loss less than 100 mL. Rajan [id number]
[2018-06-02] MEDS ORDERED: ACETAMINOPHEN 1000 MG/100 ML VIAL (NON FORMULARY) IVPB ONE (13:29)
[2018-06-02 18:12] VITALS: BP 114/72; PULSE 66; TEMP 97.9
== END 2018-06-02 16:20 | disposition home or self-care (01) ==
LOC: JASU-SURG 05:03
PROVIDERS: ATTEND Orthopaedic Surgery
PROC: 0LQN0ZZ Repair Right Lower Leg Tendon, Open Approach (ICD-10-PCS; principal; 2018-06-02 10:00)
DX: S86.011A Strain of right Achilles tendon, initial encounter (principal); X58.XXXA Exposure to other specified factors, initial encounter; Y93.9 Activity, unspecified; Y92.9 Unspecified place or not applicable; Y99.9 Unspecified external cause status
CPT/HCPCS: 94760; 97116-GP

== ENCOUNTER 2019-01-26 04:47 | Day surgery (SDC) | payer OTHER ==
[2019-01-16 12:19] VITALS: BMI 40.2
[2019-01-16 13:22] LABS: BASO % 0.7 % (0-2.0); EOS % 2.9 % (0-4.5); HEMATOCRIT 40.5 % (32.4-45.2); HEMOGLOBIN 13.2 GM/dL (10.7-15.3); LYMPH % 36.8 % (8-40); MCH 27.6 pg (25.7-33.7); MCHC 32.6 g/dl (32.0-36.0); MEAN CELL VOLUME 84.8 fl (80-96); MEAN PLT VOLUME 7.8 fl (7.5-11.1); MONO % 7.6 % (3.8-10.2); PLATELET COUNT 385 K/MM3 (134-434); RBC 4.77 M/mm3 (3.60-5.2); RDW 14.4 % (11.6-15.6); WHITE BLOOD COUNT 6.2 K/mm3 (4.0-10.0)
[2019-01-16 13:23] LABS: EPI CELLS 12.1 /HPF (0-5/HPF); HYALINE CASTS 32 /lpf (0-8); PH,URINE 5.5 (5.0-8.0); URINE APPEARANCE CLOUDY; URINE BACTERIA 264.2 /hpf (NEGATIVE); URINE BILIRUBIN NEGATIVE (NEGATIVE); URINE COLOR YELLOW; URINE GLUCOSE (UA) NEGATIVE (NEGATIVE); URINE KETONE NEGATIVE (NEGATIVE); URINE LEUK ESTERASE TRACE (NEGATIVE); URINE NITRITE NEGATIVE (NEGATIVE); URINE PROTEIN NEGATIVE (NEGATIVE); URINE RBC 2 /hpf (0-4); URINE UROBILINOGEN 0.2 mg/dL (0.2-1.0); URINE WBC 9 /hpf (0-5)
[2019-01-16 13:30] LABS: INR 1.16 (0.83-1.09); PROTHROMBIN TIME (PATIENT) 13.7 SEC (9.7-13.0)
[2019-01-16 13:33] LABS: ACTIVATED PTT 33.1 SECONDS (25.2-36.5)
[2019-01-16 14:52] LABS: ALBUMIN 3.6 g/dl (3.4-5.0); BLOOD UREA NITROGEN 9.7 mg/dL (7-18); CALCIUM 9.3 mg/dL (8.5-10.1); CREATININE 0.7 mg/dL (0.55-1.3); POTASSIUM 4.1 mmol/L (3.5-5.1); TOT PROT 7.2 g/dl (6.4-8.2)
[2019-01-26] MEDS ORDERED: BUPIVACAINE HCL/PF 0.5% (5 MG/ML) 30 ML VIAL IJ ONE (07:17)
[2019-01-26] MEDS ORDERED: LIDOCAINE 1%-EPI 1:100,000 30 ML MDV IJ ONE (07:17)
--- NOTE | 2019-01-26 07:59 | HP ---
Satellite [facility] - Chief Complaint Chief Complaint: R KNEE APIN History Source: Patient - Past Medical History Allergies/Adverse Reactions: Allergies Allergy/AdvReac Type Severity Reaction Status Date / Time Penicillins Allergy Severe Itching Verified 01/26/19 06:52 strawberry Allergy Unknown Verified 01/26/19 06:51 Pulmonary: Yes: COPD ...LMP: 10/18/17 - Current Medications Current Medications: Home Medications Medication Instructions Recorded Albuterol Sulfate [Proair Hfa] 8.5 gm IH QID PRN 08/30/17 Ibuprofen 800 mg PO PRN 06/02/18 Satellite Physical Exam - Physical Examination Vital Signs: Vital Signs Period Temp Pulse Resp BP Sys/Vera Pulse Ox Last 24 Hr 98.7 F 68 16 130/79 98 Extremities: Other (+ R KNEE JOINT LINE TENDERNESS) Satellite Impression/Plan - Impression/Plan Impression: INTERNAL DERANGEMENT R KNEE Operative Procedure: R KNEE ARTHROSCOPY Date to be Performed: 01/26/19
[2019-01-26] MEDS ORDERED: PROPOFOL 20 ML ONE (08:05)
[2019-01-26] MEDS ORDERED: KETOROLAC TROMETHAMINE 30 MG/1 ML VIAL ONE (08:20)
[2019-01-26] MEDS ORDERED: DEXAMETHASONE SOD PHOSPHATE 4 MG/1 ML VIAL ONE (08:20)
[2019-01-26] MEDS ORDERED: LIDOCAINE 1%/EPI 1:100000 (50 ML MULTI DOSE VIAL) NR ONE (08:27)
[2019-01-26] MEDS ORDERED: BUPIVACAINE HCL/PF 0.5% (5MG/ML) 10 ML VIAL NR ONE (08:29)
[2019-01-26] MEDS ORDERED: MINERAL OIL/PETROLATUM,WHITE 3.5 GM TUBE ONE (08:44)
--- NOTE | 2019-01-26 08:48 | OP ---
Operative Note - Note: Operative Date: 01/26/19 Pre-Operative Diagnosis: internal nderangement right knee Operation: arthroscopy right knee with chondroplasty MFC and Trochlea Post-Operative Diagnosis: Same as Pre-op Surgeon: Earnest Garnica Anesthesia: General Estimated Blood Loss (mls): 0 Operative Report Dictated: Yes
[2019-01-26] MEDS ORDERED: ALBUTEROL SO4 0.083% IH SOL 2.5 MG/3 ML VIAL.NEB. NEB ONE ×2 (09:04→10:41)
--- NOTE | 2019-01-26 09:30 | OP ---
DATE OF OPERATION: 01/26/2019 PREOPERATIVE DIAGNOSIS: Internal derangement, right knee. POSTOPERATIVE DIAGNOSIS: Internal derangement, right knee. PROCEDURE: Arthroscopy, right knee, with chondroplasty, medial femoral condyle and trochlea. SURGICAL ATTENDING: Earnest Garnica MD ANESTHESIA: General with LMA. CLOSURE: 4-0 nylon. COMPLICATIONS: None. CONDITION: To recovery room in stable condition. DESCRIPTION OF OPERATIVE PROCEDURE: The patient was taken to the operating room on January 26, 2019. General anesthesia with LMA was administered by the anesthesiologist. Right lower extremity was prepped and draped in the usual sterile fashion. The medial and lateral infrapatellar portal sites were infiltrated with 1% Xylocaine with epinephrine. Both portals were then made with a 15 blade followed by a blunt trocar. The scope trocar was placed in the lateral infrapatellar portal and suprapatellar pouch. The knee was then inflated with a cocktail of 10 mL of 1% Xylocaine, 10 mL of 0.5% Marcaine, and 20 mL of arthroscopic saline. The anesthetic was given a chance to work inside the knee, and then, the procedure was performed. The undersurface of the patella was found to be intact for the most part. The pouch was found to be clean. Both gutters were visualized to be clean and free of debris. The trochlea was found to have extensive grade 3-4 changes. Any loose articular cartilage was debrided using the shaver. With valgus stress on the knee, the medial compartment was entered and medial meniscus was visualized and probed and found to be intact. The medial femoral condyle also had extensive changes from 0 degrees to about 60 degrees. Any loose articular cartilage debrided with the shaver. The medial tibial plateau was found to be intact. At 90 degrees, the ACL was visualized, probed, and found to be intact. In the figure-of-4 position, the lateral compartment was entered. Lateral meniscus was visualized, probed, and found to be intact. The lateral femoral condyle was run and found to be intact as was the lateral tibial plateau. The knee was irrigated with copious amounts of irrigation. Fluid was drained, and then, the portals were closed. Prior to pulling the trocar, 20 mL of 0.5% Marcaine was introduced through the outflow portal for postoperative analgesia. Sterile pressure dressing was placed over the knee. Patient was awakened from anesthesia and transferred to recovery room in stable condition. No complications. Estimated blood loss was negligible. Rajan [id number]
[2019-01-26 09:45] VITALS: TEMP 97.6
[2019-01-26] MEDS ORDERED: ONDANSETRON 4 MG/2 ML VIAL IVPUSH PRN (10:40)
[2019-01-26] MEDS ORDERED: LACTATED RINGERS SOLUTION 1,000 ML IV SCH (10:45)
[2019-01-26 13:14] VITALS: BP 110/57; PULSE 65
== END 2019-01-26 13:14 | disposition home or self-care (01) ==
LOC: JASU-SURG 04:47
PROVIDERS: ATTEND Orthopaedic Surgery
PROC: 0SBC4ZZ Excision of Right Knee Joint, Percutaneous Endoscopic Approach (ICD-10-PCS; principal; 2019-01-26 08:00)
DX: M23.91 Unspecified internal derangement of right knee (principal)
CPT/HCPCS: 36415; 80053; 81003; 84702; 85025; 85610; 85730; 88304-TC; 94760

== ENCOUNTER 2019-01-30 08:18 | Day surgery (SDC) | payer OTHER ==
[2019-01-30 09:49] VITALS: BMI 40.2
[2019-01-30 10:36] VITALS: TEMP 97.5
[2019-01-30 12:45] VITALS: BP 132/83; PULSE 58
--- NOTE | 2019-01-31 13:47 | PATH ---
Surgical Pathology Report Patient Name: BEAR MORA [facility]. Rec. #: [id number] /Age/Gender: 1970 (Age: 48) / F Account: [id number] Location: U-ENDOSCOPY Taken: 01/30/2019 Received: 01/30/2019 Reported: 01/31/2019 Physicians: Evens Shannon M.D. Specimen(s) Received ANTRUM AND BODY Clinical History Obesity Postoperative diagnosis: Normal stomach Final Diagnosis STOMACH, ANTRUM AND BODY, BIOPSY: GASTRIC OXYNTIC MUCOSA WITH MILD CHRONIC GASTRITIS. IMMUNOHISTOCHEMICAL STAIN FOR H. PYLORI IS NEGATIVE. Electronically Signed Romi Palmer M.D. Gross Description Received in formalin, labeled "biopsy antrum and body" are 3 mccrary, irregular portions of soft tissue ranging from 0.3-0.4 cm. in greatest dimension. The specimens are submitted in toto in one cassette. /01/30/2019 saudi/01/30/2019
== END 2019-01-30 11:45 | disposition home or self-care (01) ==
LOC: JASU-ENDO 08:18
PROVIDERS: ATTEND Internal Medicine Gastroenterology
PROC: 0DB68ZX Excision of Stomach, Via Natural or Artificial Opening Endoscopic, Diagnostic (ICD-10-PCS; principal; 2019-01-30 08:45)
DX: Z01.818 Encounter for other preprocedural examination (principal); E66.01 Morbid (severe) obesity due to excess calories; K29.50 Unspecified chronic gastritis without bleeding
CPT/HCPCS: 84703; 88305-TC; 88342-TC

== ENCOUNTER 2020-11-09 12:59 | Emergency (ER) | payer OTHER ==
[2020-11-09 13:25] VITALS: BP 120/74; PULSE 69; TEMP 97.9; BMI 36.8
[2020-11-09] MEDS ORDERED: ONDANSETRON 4 MG/2 ML VIAL IVPUSH ONE (14:03)
[2020-11-09] MEDS ORDERED: ONDANSETRON 4 MG/2 ML VIAL ONE (14:56)
[2020-11-09] MEDS ORDERED: KETOROLAC TROMETHAMINE 15 MG/ML VIAL IVPUSH ONE (15:26)
[2020-11-09 15:31] LABS: BASO % 1.3 % (0-2.0); EOS % 3.4 % (0-4.5); HEMATOCRIT 39.7 % (32.4-45.2); HEMOGLOBIN 13.4 GM/dL (10.7-15.3); MCH 29.9 pg (25.7-33.7); MCHC 33.7 g/dl (32.0-36.0); MEAN CELL VOLUME 88.6 fl (80-96); MEAN PLT VOLUME 8.1 fl (7.5-11.1); MONO % 7.4 % (3.8-10.2); NEUT % 42.9 % (42.8-82.8); PLATELET COUNT 333 K/MM3 (134-434); RBC 4.48 M/mm3 (3.60-5.2); RDW 13.6 % (11.6-15.6); WHITE BLOOD COUNT 7.3 K/mm3 (4.0-10.0)
[2020-11-09] MEDS ORDERED: KETOROLAC TROMETHAMINE 15 MG/ML VIAL ONE (15:33)
[2020-11-09 15:36] LABS: CHLORIDE 105 mmol/L (98-107); SODIUM 139 mmol/L (136-145)
[2020-11-09 15:38] LABS: CALCIUM 8.7 mg/dL (8.5-10.1)
[2020-11-09 15:39] LABS: ALBUMIN 3.4 g/dl (3.4-5.0); BLOOD UREA NITROGEN 9.9 mg/dL (7-18); CO2 31 mmol/L (21-32); GLUCOSE,RANDOM 82 mg/dL (74-106); LIPASE 72 U/L (73-393)
[2020-11-09 15:41] LABS: SGOT/AST 46 U/L (15-37); SGPT/ALT 18 U/L (13-61)
[2020-11-09 15:42] LABS: CREATININE 0.6 mg/dL (0.55-1.3); EPI CELLS 10 /uL (0-25.1); HYALINE CASTS 0 /uL (0-3.1); URINE APPEARANCE CLEAR; URINE BACTERIA 183 /uL (0-1359); URINE BILIRUBIN NEGATIVE (NEGATIVE); URINE COLOR YELLOW; URINE GLUCOSE (UA) NEGATIVE (NEGATIVE); URINE KETONE NEGATIVE (NEGATIVE); URINE LEUK ESTERASE TRACE (NEGATIVE); URINE NITRITE NEGATIVE (NEGATIVE); URINE PROTEIN NEGATIVE (NEGATIVE); URINE RBC 11 /uL (0-23.9); URINE UROBILINOGEN 0.2 mg/dL (0.2-1.0); URINE WBC 8 /uL (0-25.8)
[2020-11-09 15:43] LABS: BILIRUBIN,TOTAL 0.9 mg/dL (0.2-1); TOT PROT 7.5 g/dl (6.4-8.2)
[2020-11-09 15:44] LABS: ALK PHOS 102 U/L (45-117)
[2020-11-09 15:47] LABS: ANION GAP 3 MMOL/L (8-16)
[2020-11-09 17:43] LABS: ALBUMIN 3.2 g/dl (3.4-5.0)
[2020-11-09 17:46] LABS: CREATININE 0.7 mg/dL (0.55-1.3)
[2020-11-09 17:47] LABS: BILIRUBIN,TOTAL 0.6 mg/dL (0.2-1); TOT PROT 6.5 g/dl (6.4-8.2)
[2020-11-09] MEDS ORDERED: ACETAMINOPHEN 325 MG TABLET (FP) PO ONE (20:00)
[2020-11-09] MEDS ORDERED: ACETAMINOPHEN 325 MG TABLET (FP) ONE (20:11)
== END 2020-11-09 20:46 | disposition home or self-care (01) ==
LOC: JER 12:59
PROC: 3E033GC Introduction of Other Therapeutic Substance into Peripheral Vein, Percutaneous Approach (ICD-10-PCS; principal; 2020-11-09)
DX: R10.9 Unspecified abdominal pain (principal); R19.7 Diarrhea, unspecified
CPT/HCPCS: 36415; 71046-TC-FY; 74018-TC-FY; 74176-TC; 74177-TC; 80053; 81003; 83690; 84484; 85025; 87086; 93005; 93010; 99285-25; Q9967

== ENCOUNTER 2023-04-23 05:24 | Emergency (ER) | payer MEDICARE, OTHER ==
[2023-04-23 05:37] VITALS: PULSE 59; RESP 20; TEMP 98.4; BMI 35.9
[2023-04-23] MEDS ORDERED: ACETAMINOPHEN 1000 MG/100 ML BAG IVPB ONE (05:54)
[2023-04-23] MEDS ORDERED: LIDOCAINE 5% TOPICAL PATCH TP ONE (05:54)
[2023-04-23] MEDS ORDERED: ACETAMINOPHEN INJECTION 100 ML IVPB ONE (06:33)
[2023-04-23] MEDS ORDERED: LIDOCAINE 4% PATCH TP ONE (06:34)
[2023-04-23] MEDS ORDERED: DEXAMETHASONE SOD PHOSPHATE 10 MG/1 ML VIAL IVPUSH ONE (06:50)
[2023-04-23] MEDS ORDERED: KETOROLAC TROMETHAMINE 30 MG/1 ML VIAL IVPUSH ONE (06:50)
[2023-04-23 06:57] LABS: BASO % 0.9 % (0-2.0); EOS % 5.5 % (0-4.5); HEMATOCRIT 39.4 % (32.4-45.2); HEMOGLOBIN 12.8 GM/dL (10.7-15.3); LYMPH % 30.6 % (8-40); MCH 28.5 pg (25.7-33.7); MCHC 32.4 g/dl (32.0-36.0); MEAN CELL VOLUME 87.9 fl (80-96); MEAN PLT VOLUME 8.2 fl (7.5-11.1); MONO % 7.2 % (3.8-10.2); NEUT % 55.8 % (42.8-82.8); PLATELET COUNT 364 10^3/uL (134-434); RBC 4.48 M/mm3 (3.60-5.2); RDW 14.7 % (11.6-15.6); WHITE BLOOD COUNT 7.9 K/mm3 (4.0-10.0)
[2023-04-23 07:16] LABS: POTASSIUM 3.6 mmol/L (3.5-5.1)
[2023-04-23 07:18] LABS: CALCIUM 8.6 mg/dL (8.5-10.1)
[2023-04-23 07:19] LABS: ALBUMIN 3.6 g/dl (3.4-5.0); BLOOD UREA NITROGEN 10.5 mg/dL (7-18)
[2023-04-23 07:22] LABS: CREATININE 0.7 mg/dL (0.55-1.3)
[2023-04-23 07:23] LABS: BILIRUBIN,TOTAL 1.1 mg/dL (0.2-1); TOT PROT 7.1 g/dl (6.4-8.2)
[2023-04-23] MEDS ORDERED: DEXAMETHASONE SOD PHOSPHATE 10 MG/1 ML VIAL ONE (07:35)
[2023-04-23] MEDS ORDERED: KETOROLAC TROMETHAMINE 30 MG/1 ML VIAL ONE (07:35)
[2023-04-23] MEDS ORDERED: METHOCARBAMOL 750 MG TAB PO ONE (09:52)
[2023-04-23] MEDS ORDERED: METHOCARBAMOL 500 MG TABLET ONE (10:19)
[2023-04-23 11:48] VITALS: BP 119/75
[2023-04-23] MEDS ORDERED: LIDOCAINE PATCH REMOVAL MC ONE (18:00)
== END 2023-04-23 12:02 | disposition home or self-care (01) ==
LOC: JER 05:24
PROC: 3E033NZ Introduction of Analgesics, Hypnotics, Sedatives into Peripheral Vein, Percutaneous Approach (ICD-10-PCS; principal; 2023-04-23)
PROC: 3E0333Z Introduction of Anti-inflammatory into Peripheral Vein, Percutaneous Approach (ICD-10-PCS; 2023-04-23)
PROC: 3E033GC Introduction of Other Therapeutic Substance into Peripheral Vein, Percutaneous Approach (ICD-10-PCS; 2023-04-23)
DX: M54.12 Radiculopathy, cervical region (principal); S46.812A Strain of other muscles, fascia and tendons at shoulder and upper arm level, left arm, initial encounter; M25.512 Pain in left shoulder; X58.XXXA Exposure to other specified factors, initial encounter
CPT/HCPCS: 36415; 71046-TC-FY; 72125-TC; 73030-TC-LT-FY; 80053; 84484; 85025; 93005; 93010; 96374; 96375; 99285-25; J1100